=== PATIENT | male | born 1960 | race Caucasian/White ===

== ENCOUNTER 2019-09-20 22:15 | Emergency (ER) | payer OTHER ==
[~2019-09-20] VITALS: Ht 167.6 cm; Wt 97.8 kg
[~2019-09-20 22:15] MED LIST: AFRIN; ATOR40TA PO; BUPR100T7 PO; GLIM4TAB7 PO; METF500T PO; PREG100C PO; TRAZ-251 PO
[2019-09-20 22:18] VITALS: BP 154/72
[2019-09-20] MEDS ORDERED: TETanus/Pertussis (Acell)/Diphther VAC/PF (Tdap-Adult) 0.5ml syringe IMVAC ONE (22:30)
[2019-09-20] MEDS ORDERED: LIDOcaine 1% W/epiNEPHrine 1:200,000 10ml vial IJ ONE (22:30)
[2019-09-20] MEDS ORDERED: cephalexin 500mg capsule PO ONE (22:30)
[2019-09-20] MEDS ORDERED: CEPH250T PO (23:23)
== END 2019-09-20 23:31 | disposition home or self-care (01) ==
LOC: ER 22:16
DX: S61.213A Laceration without foreign body of left middle finger without damage to nail, initial encounter (principal); E11.42 Type 2 diabetes mellitus with diabetic polyneuropathy; E78.00 Pure hypercholesterolemia, unspecified; F32.9 Major depressive disorder, single episode, unspecified; Z88.5 Allergy status to narcotic agent; Z79.899 Other long term (current) drug therapy; X58.XXXA Exposure to other specified factors, initial encounter; Y93.89 Activity, other specified; Y92.89 Other specified places as the place of occurrence of the external cause; Y99.8 Other external cause status
CPT/HCPCS: 12001; 73140; 90471; 90715; 99283

== ENCOUNTER 2021-04-17 17:51 | Emergency (ER) | payer OTHER ==
[~2021-04-17] VITALS: Ht 165.1 cm; Wt 66.0 kg
[2021-04-17] MEDS ORDERED: POLY17PO10 PO (19:30)
[2021-04-17 19:44] VITALS: BP 140/80
== END 2021-04-17 19:45 | disposition home or self-care (01) ==
LOC: ER 17:52
DX: K59.00 Constipation, unspecified (principal); R11.2 Nausea with vomiting, unspecified; E11.42 Type 2 diabetes mellitus with diabetic polyneuropathy; E78.00 Pure hypercholesterolemia, unspecified; F32.9 Major depressive disorder, single episode, unspecified; Z88.5 Allergy status to narcotic agent; Z79.899 Other long term (current) drug therapy
CPT/HCPCS: 99283